=== PATIENT | female | born 1950 | race Caucasian/White ===

== ENCOUNTER 2022-03-25 20:34 | Observation (INO) ==
[2022-03-25 21:00] LABS: Basophils % 0.3 % (0.0-0.8); Eosinophils # 0.1 10*3/uL (0.0-0.87); Eosinophils % 0.5 % (0.00-10.9); Hematocrit 50.1 VOL% (35.7-47.0); Hemoglobin 16.5 GM/DL (12.0-16.0); Immature Granulocytes % 0.4 %; Immature Granulocytes Absolute 0.04 #; Lymphocytes # 2.6 10*3/uL (1.4-4.0); Lymphocytes % 24.5 % (21.3-54.2); Mean Corpuscular HGB Conc 32.9 GM/DL (32-36); Mean Corpuscular Volume 94.9 FL (87-102); Mean Platelet Volume 9.8 FL (9.6-12.0); Monocytes # 0.5 10*3/uL (0.11-0.8); Monocytes % 5.2 % (1.7-12.7); Neutrophils % 69.1 % (38.7-73.9); Platelet Count 287 T/CUMM (130-400); Red Blood Count 5.28 MC/CUMM (3.8-5.5); Red Cell Distribution Width 12.3 % (9.3-17.3); White Blood Count 10.4 T/CUMM (4-12)
[2022-03-25 21:40] LABS: Albumin 4.1 G/DL (3.4-5.0); Bilirubin,Total 0.4 MG/DL (0.20-1.00); Calcium 10.3 MG/DL (8.5-10.1); Osmolality,Calculated 272.1 MOS/KG (273-304); Potassium 3.8 MMOL/L (3.5-5.1); Total Protein 8.2 G/DL (6.4-8.2)
[2022-03-26] MEDS ORDERED: PROMETHAZINE 25 MG/1 ML VIAL IM STA ×2 (01:46→02:08)
[2022-03-26] MEDS ORDERED: ONDANSETRON 4 MG/2 ML VIAL IV STA (01:46)
[2022-03-26] MEDS ORDERED: SODIUM CHLORIDE 0.9% 1,000 ML IV STA (01:46)
[2022-03-26] MEDS ORDERED: PANTOPRAZOLE 40 MG VIAL IV STA (02:12)
[2022-03-26 03:53] LABS: Hepatitis B Core IgM Quant < 0.05 Index; Hepatitis B Surface Ag Quant < 0.10 Index; Hepatitis B Surface Ag Result Non-Reactive (NonReactive); Hepatitis C Virus Ab Quant 0.08 Index; Hepatitis C Virus Ab Result Non-Reactive (NonReactive)
[2022-03-26] MEDS ORDERED: ONDANSETRON 4 MG/2 ML VIAL IV PRN (03:57)
[2022-03-26] MEDS ORDERED: ACETAMINOPHEN 325 MG TABLET PO PRN (03:57)
[2022-03-26] MEDS ORDERED: hydrALAZINE 20 MG/1 ML VIAL IV PRN (03:57)
[2022-03-26] MEDS ORDERED: DEXTROSE 10% 250 ML BAG IV PRN (03:57)
[2022-03-26] MEDS ORDERED: GLUCAGON 1 MG VIAL IM PRN (03:57)
[2022-03-26] MEDS ORDERED: PROMETHAZINE 25 MG/1 ML VIAL IV PRN (03:57)
[2022-03-26 04:17] LABS: Basophils % 0.1 % (0.0-0.8); Hemoglobin 15.7 GM/DL (12.0-16.0); Immature Granulocytes % 0.4 %; Immature Granulocytes Absolute 0.04 #; Lymphocytes # 1.1 10*3/uL (1.4-4.0); Lymphocytes % 11.5 % (21.3-54.2); Mean Corpuscular HGB Conc 32.7 GM/DL (32-36); Mean Corpuscular Volume 94.9 FL (87-102); Mean Platelet Volume 9.9 FL (9.6-12.0); Monocytes # 0.3 10*3/uL (0.11-0.8); Monocytes % 3.1 % (1.7-12.7); Neutrophils % 84.9 % (38.7-73.9); Platelet Count 296 T/CUMM (130-400); Red Blood Count 5.06 MC/CUMM (3.8-5.5); Red Cell Distribution Width 12.5 % (9.3-17.3); White Blood Count 9.8 T/CUMM (4-12)
[2022-03-26] MEDS ORDERED: PROMETHAZINE INJ 25 MG in SODIUM CHLORIDE 0.9% 50 ML IV PRN (04:18)
[2022-03-26] MEDS ORDERED: MECLIZINE 25 MG TABLET PO PRN (04:32)
[2022-03-26] MEDS: SODIUM CHLORIDE 0.9% 1,000 ML IV SCH ×2 (07:00→13:18)
[2022-03-26 09:25] LABS: Bacteria,Urine Occasional /HPF (Few); Hyaline Casts,Urine 3 /LPF (0-3); Mucus,Urine Occasional /LPF (Occasional); RBC,Urine 1 /HPF (0-4); Squamous Epithelial Cell,Urine Occasional /HPF (0-10)
[2022-03-26 09:27] LABS: Glucose,Urine (UA) Negative (Negative); Protein,Urine Negative (Negative); Urine Appearance Clear (Clear); Urine Color Yellow (Yellow); Urine Specific Gravity >= 1.030 (1.001-1.035)
[2022-03-26 09:28] LABS: Bilirubin,Urine Negative (Negative); Blood, Urine Negative (Negative); Ketones,Urine Negative (Negative); Nitrite,Urine Negative (Negative); Urine Urobilinogen 0.2 eU/dL (<2.0)
[2022-03-26 16:22] VITALS: BP 104/61
[2022-03-26] MEDS ORDERED: PANTOPRAZOLE 40 MG VIAL IV SCH (21:00)
== END 2022-03-26 19:05 | disposition home health service (06) ==
LOC: N.ED 20:34 → N.EDINP 20:34 → N.5E 03-26 07:30
PROVIDERS: ADMIT Internal Medicine; ATTEND Internal Medicine